=== PATIENT | male | born 1970 | race Caucasian/White ===

== ENCOUNTER 2019-09-06 00:10 | Emergency (ER) | payer BC ==
[~2019-09-06] VITALS: Ht 177.8 cm; Wt 86.4 kg
[2019-09-06 00:15] VITALS: TEMP 98.9
[2019-09-06 00:47] LABS: BASO % 0.4 % (0.0-2.0); EOS # 0.1 (0.0-0.7); EOS % 1.3 % (0-4.0); GRAN # 6.6 (1.4-6.5); GRAN % 63.4 % (42.2-75.2); HEMOGLOBIN 15.3 g/dl (13.5-18.0); LYMPH # 2.7 (1.2-3.4); MEAN CELL VOLUME 86 fl (80.0-100.0); MEAN CORPUSCULAR HEMOGLOBIN 29 pg (27.0-31.0); MEAN CORPUSCULAR HGB CONC 34 g/dl (33.0-37.0); MEAN PLATELET VOLUME 10.5 fl (7.4-10.4); MONO # 0.9 (0.1-0.6); MONO % 8.6 % (1.7-9.3); PLATELET COUNT 258 K/mm3 (130-400); RED BLOOD COUNT 5.21 M/mm3 (4.20-5.60); REDCELL DISTRIBUTION WIDTH-CV 12.3 % (11.5-14.5)
[2019-09-06 01:02] LABS: ALANINE AMINOTRANSFERASE 58 U/L (4-49); ALKALINE PHOSPHATASE 92 U/L (50-136); ANION GAP 12 mmol/L (7-16); AST,SGOT 41 U/L (15-37); BILIRUBIN,TOTAL 0.7 mg/dL (0.0-1.0); BLOOD UREA NITROGEN 17 mg/dL (9-20); CALCIUM 9.8 mg/dL (8.4-10.2); CARBON DIOXIDE 28 mmol/L (22-30); CHLORIDE 100 mmol/L (98-107); GLUCOSE 104 mg/dL (74-106); POTASSIUM 3.7 mmol/L (3.4-5.0); SODIUM 141 mmol/L (137-145); TOTAL PROTEIN 9.2 gm/dL (6.4-8.2)
[2019-09-06 01:39] LABS: TROPONIN-I < 0.012 ng/mL (0.000-0.035)
[2019-09-06] MEDS ORDERED: NORCO 325 MG-51 TAB PO (04:13)
[2019-09-06] MEDS ORDERED: INDOCIN 25MG CA25 MG PO (04:13)
[2019-09-06 04:34] VITALS: BP 132/92; PULSE 60
== END 2019-09-06 04:45 | disposition home or self-care (01) ==
LOC: COL.ER 00:10
PROVIDERS: Physician Assistant
DX: R07.89 Other chest pain (principal); M25.50 Pain in unspecified joint; Z79.82 Long term (current) use of aspirin
CPT/HCPCS: J1885; J2270; J7030